=== PATIENT | female | born 1985 | race Caucasian/White ===

== ENCOUNTER → 2021-09-09 11:11 | Outpatient (BNVA) | payer SELFPAY | PROVIDERS: Family Provider Nurse Practitioner Family; PCP Nurse Practitioner Family; Visit Provider Registered Nurse | DX: L30.0 Nummular dermatitis (principal) | CPT/HCPCS: 86038; 86141 ==

== ENCOUNTER → 2021-11-13 09:58 | Outpatient (BNVA) | payer SELFPAY | PROVIDERS: Family Provider Nurse Practitioner Family; PCP Nurse Practitioner Family; Visit Provider Internal Medicine Rheumatology | DX: R76.8 Other specified abnormal immunological findings in serum (principal); Z79.899 Other long term (current) drug therapy; M19.90 Unspecified osteoarthritis, unspecified site; R21 Rash and other nonspecific skin eruption; E06.3 Autoimmune thyroiditis | CPT/HCPCS: 36415; 80076; 82306; 82565; 85025; 85651; 86140; 86160; 86162; 86200; 86235; 86255; 86376; 86431 ==

== ENCOUNTER 2022-05-07 06:11 | Day surgery (SDC) | payer SELFPAY ==
[2022-05-05 13:50] VITALS: BMI 40.6
[2022-05-07] MEDS: sodium chloride 0.9% 1,000 ML 30 ML IV (06:44)
[2022-05-07 06:47] VITALS: BP 129/94; PULSE 112; RESP 18; TEMP 36.4; O2SAT 96
[2022-05-07] MEDS: ondansetron 2 mg/ML SDV 2 mL 4 MG IVP (06:50)
[2022-05-07 06:52] LABS: OR HCG Qualitative Urine Negative (Negative)
--- NOTE | 2022-05-07 07:17 | ANES.PREANE2 ---
Pre-Anesthetic Assessment Height/Weight: Height 1.63 m Weight 107.501 kg Temp Pulse Resp BP Pulse Ox O2 Del Method 97.6 F 112 H 18 129/94 96 05/07/22 06:47 05/07/22 06:47 05/07/22 06:47 05/07/22 06:47 05/07/22 06:47 05/07/22 06:47 Preop Diagnosis: hematachezia Operation Date: 05/07/22 08:00 Proposed Procedures p EGD and colonoscopy [id number],R11.0,K92.1,K92.0(Not Applicable) - Richie Pedro DO s Colonoscopy(Not Applicable) - Richie Pedro DO Was Beta Yumiko taken within 24 hours: N/A Was Clonidine taken within 24 hours: N/A Last intake: Intake Last Liquid Date 05/06/22 Last Liquid Time 22:00 Last Solid Date 05/05/22 Last Solid Time 21:00 Social No alcohol and No tobacco Exam alert, oriented x 3, clear to auscultation bilaterally and regular rate & rhythm Airway Submandibular: within normal limits Cervical ROM: within normal limits Mallampati: Class II Dentition: chipped Comments: Comments: poor dentition History/ROS No significant history except as noted and No significant complaints Pulmonary None reported CV/HEM Hypertension None reported Hepatic None reported GI None reported Metabolic Morbid Obesity and Thyroid Disease [facility] [place] None reported Neuropsych None reported Anesthetic Plan ASA status: 2 Anesthesia: Anesthesia Evaluation and MAC Risk of > 500 ml blood loss (7ml/kg in children): No Medications/Allergies Home Medications Medication Instructions Recorded Confirmed Last Taken Type levothyroxine 175 mcg capsule 175 mcg PO DAILY 01/09/21 05/05/22 05/07/22 05:00 History lisinopril 20 mg tablet 20 mg PO DAILY 01/09/21 05/05/22 05/07/22 05:00 History acetaminophen 500 mg tablet 1,000 mg PO Q6H PRN Pain 11/13/21 05/05/22 Unknown History (Tylenol Extra Strength) pantoprazole 40 mg tablet,delayed 40 mg PO BID 6 weeks #84 tabs 02/24/22 05/05/22 05/06/22 Rx release (Protonix) desogestrel 0.15 mg-ethinyl 1 tab PO DAILY 10/05/05/22 05/07/22 05:00 History estradiol 0.03 mg tablet (Cyred EQ) ondansetron HCl 4 mg tablet 4 mg PO Q8H PRN Nausea 05/07/22 05/07/22 05/06/22 History Allergies Allergy/AdvReac Type Severity Reaction Status Date / Time adhesive tape Allergy Intermediate rash Verified 05/05/22 13:51 hydrocodone Allergy Intermediate N/V Verified 05/05/22 13:51 codeine AdvReac Intermediate N/V Verified 05/05/22 13:51 Current Medications Generic Name Dose Route Start Last Admin Trade Name Freq PRN Reason Stop Dose Admin Sodium Chloride 1,000 mls @ 30 mls/hr 05/07/22 06:30 05/07/22 06:44 Sodium Chloride 0.9% IV 05/08/22 06:29 30 mls/hr .Q24H SRINATH Administration Ondansetron HCl 4 mg 05/07/22 06:22 05/07/22 06:50 Ondansetron 2 Mg/Ml Sdv 2 Ml IVP 4 mg Q15M PRN Administration Nausea/Vomiting PACU PHASE II [facility] Anesthesia Medical History Inflammatory arthritis Skin rash Surgical History History of esophagogastroduodenoscopy (EGD) History of thyroidectomy Hx of cholecystectomy Hx of hysterectomy Family History Mother Hypertension Thyroid cancer Father Hypertension CAD (coronary artery disease) Other Cancer Family history of premature coronary artery disease Psoriatic arthritis Rheumatoid arthritis Denies family history of Diabetes Lupus Lung disease Stroke Social History Smoking and tobacco status: former smoker Alcohol intake: never History of recent travel: No Female Reproductive History Date of last menstrual period: 12/10/20 Data Anesthesia Cardiac Studies: No Data to Display
--- NOTE | 2022-05-07 08:56 | PM.HP ---
Providers/Chief Complaint Primary Care Provider: Brice Santizo Chief Complaint: nausea History of Present Illness Kay Cesar is a 36 year old female here for EGD and colonoscopy Medications/Allergies Home Medications Medication Instructions Recorded Confirmed Last Taken Type levothyroxine 175 mcg capsule 175 mcg PO DAILY 01/09/21 05/05/22 05/07/22 05:00 History lisinopril 20 mg tablet 20 mg PO DAILY 01/09/21 05/05/22 05/07/22 05:00 History acetaminophen 500 mg tablet 1,000 mg PO Q6H PRN Pain 11/13/21 05/05/22 Unknown History (Tylenol Extra Strength) pantoprazole 40 mg tablet,delayed 40 mg PO BID 6 weeks #84 tabs 02/24/22 05/05/22 05/06/22 Rx release (Protonix) desogestrel 0.15 mg-ethinyl 1 tab PO DAILY 05/05/22 05/05/22 05/07/22 05:00 History estradiol 0.03 mg tablet (Cyred EQ) ondansetron HCl 4 mg tablet 4 mg PO Q8H PRN Nausea 05/07/22 05/07/22 05/06/22 History Allergies Allergy/AdvReac Type Severity Reaction Status Date / Time adhesive tape Allergy Intermediate rash Verified 05/05/22 13:51 hydrocodone Allergy Intermediate N/V Verified 05/05/22 13:51 codeine AdvReac Intermediate N/V Verified 05/05/22 13:51 PFSH Acute PFSH: Medical History Inflammatory arthritis Skin rash Surgical History History of esophagogastroduodenoscopy (EGD) History of thyroidectomy Hx of cholecystectomy Hx of hysterectomy Family History Mother Hypertension Thyroid cancer Father Hypertension CAD (coronary artery disease) Other Cancer Family history of premature coronary artery disease Psoriatic arthritis Rheumatoid arthritis Denies family history of Diabetes Lupus Lung disease Stroke Social History Smoking and tobacco status: former smoker Alcohol intake: never History of recent travel: No Female Reproductive History: Date of last menstrual period: 12/10/20 Vitals/I&O/Wt Last Vital Signs Temp 97.6 F 05/07/22 06:47 Pulse 112 H 05/07/22 06:47 Resp 18 05/07/22 06:47 BP 129/94 05/07/22 06:47 Pulse Ox 96 05/07/22 06:47 O2 Del Method 05/07/22 06:47 Weight last 48 hrs Weight 237 lb A&P Assessment and plan (1) Bloody emesis: (2) Hematochezia: Plan EGD and colonoscopy Attestations Medical Necessity Statement*: Home Coding Level of Care Code Acute Business Management Professor for g Fwd Diagnoses Bloody emesis K92.0 Hematochezia K92.1
[2022-05-07 09:31] VITALS: BP 141/88; PULSE 97; RESP 18; TEMP 36.1; O2SAT 93
[2022-05-07 09:40] VITALS: BP 132/91; PULSE 66; RESP 18; TEMP 36.2; O2SAT 97
--- NOTE | 2022-05-07 10:05 | ANE.PACU2 ---
Inpatient post-anesthesia follow up: Airway intact: Yes Vital signs: Temperature 97.2 F Pulse Rate 66 Respiratory Rate 18 Blood Pressure 132/91 Pulse Oximetry 97 Oxygen Delivery Me thod Room Air Oxygen Flow Rate Fraction of Inspir ed Oxygen Hydration adequate: Yes Nausea and vomiting: No Pain level: 1 Mental status: Baseline
== END 2022-05-07 10:00 | disposition home or self-care (01) ==
PROVIDERS: Anesthesiology; PCP Nurse Practitioner Family; Visit Provider Surgery
PROC: 0DJ08ZZ Inspection of Upper Intestinal Tract, Via Natural or Artificial Opening Endoscopic (ICD-10-PCS; CPT 43235; principal; 2022-05-07 08:00)
PROC: 0DJD8ZZ Inspection of Lower Intestinal Tract, Via Natural or Artificial Opening Endoscopic (ICD-10-PCS; CPT 45378; 2022-05-07 08:00)
DX: K92.1 Melena (principal); K92.0 Hematemesis; K29.50 Unspecified chronic gastritis without bleeding; B96.81 Helicobacter pylori [H. pylori] as the cause of diseases classified elsewhere; I10 Essential (primary) hypertension; E66.01 Morbid (severe) obesity due to excess calories; Z68.41 Body mass index [BMI] 40.0-44.9, adult; Z87.891 Personal history of nicotine dependence
CPT/HCPCS: 43239; 45378; 81025; 84703; 88305; J2405; J2704; J7030

== ENCOUNTER → 2022-10-20 09:08 | Outpatient (BNVA) | payer SELFPAY | PROVIDERS: PCP Nurse Practitioner Family; Visit Provider Nurse Practitioner Family | DX: E78.5 Hyperlipidemia, unspecified (principal); I10 Essential (primary) hypertension; E06.3 Autoimmune thyroiditis; E55.9 Vitamin D deficiency, unspecified | CPT/HCPCS: 80053; 80061; 82306; 84443 ==

== ENCOUNTER 2022-12-25 09:12 | Outpatient (CLI) | payer SELFPAY | END 2022-12-25 09:13 | disposition home or self-care (01) | PROVIDERS: PCP Nurse Practitioner Family; Visit Provider Surgery | DX: K29.70 Gastritis, unspecified, without bleeding (principal); B96.81 Helicobacter pylori [H. pylori] as the cause of diseases classified elsewhere | CPT/HCPCS: 87338 ==

== ENCOUNTER → 2023-03-17 10:13 | Outpatient (BNVA) | payer SELFPAY | PROVIDERS: PCP Nurse Practitioner Family; Visit Provider Nurse Practitioner Family | DX: E55.9 Vitamin D deficiency, unspecified (principal); I10 Essential (primary) hypertension; E06.3 Autoimmune thyroiditis; K04.7 Periapical abscess without sinus | CPT/HCPCS: 80053; 82306; 84443 ==

== ENCOUNTER → 2023-05-01 14:15 | Outpatient (BNVA) | payer SELFPAY | PROVIDERS: PCP Nurse Practitioner Family; Visit Provider Nurse Practitioner Family | DX: R68.89 Other general symptoms and signs (principal); Z11.52 Encounter for screening for COVID-19; J06.9 Acute upper respiratory infection, unspecified | CPT/HCPCS: 87400; 87426 ==

== ENCOUNTER → 2023-07-28 14:05 | Outpatient (BNVA) | payer SELFPAY | PROVIDERS: PCP Nurse Practitioner Family; Visit Provider Nurse Practitioner Family | DX: R05.9 Cough, unspecified (principal); R00.0 Tachycardia, unspecified | CPT/HCPCS: 71046; 93005 ==

== ENCOUNTER 2025-01-11 08:59 | Outpatient (CLI) | payer OTHER, SELFPAY ==
--- NOTE | 2025-01-11 09:00 | MM_ITS ---
WS: [id number] BILATERAL 3D TOMOSYNTHESIS DIGITAL SCREENING MAMMOGRAM WITH CAD CLINICAL INFORMATION: SCREENING HISTORY: Screening mammogram. No current complaints. COMPARISON: Baseline TECHNIQUE: Bilateral CC and MLO views. FINDINGS: Fatty-replaced breasts bilaterally. No suspicious focal mass, asymmetry, calcifications, or architectural distortion. No evidence of malignancy. MM/MM scr BI tomosynthesis [id number] IMPRESSION: DENSITY: The breasts are almost entirely fatty. BI-RADS: 1 - Negative. FOLLOW UP: 1 Year Follow-up Recommend return to annual screening mammography.
== END 2025-01-11 09:00 | disposition home or self-care (01) ==
PROVIDERS: PCP Advanced Practice Midwife; Visit Provider Advanced Practice Midwife
DX: Z12.31 Encounter for screening mammogram for malignant neoplasm of breast (principal); R92.313 Mammographic fatty tissue density, bilateral breasts
CPT/HCPCS: 77063; 77067